=== PATIENT | female | born 1945 | race Caucasian/White ===

== ENCOUNTER 2016-10-12 10:00 | Outpatient (CLI) | payer MEDICARE, OTHER | END 2016-10-12 10:01 | disposition home or self-care (01) | DX: Z12.31 Encounter for screening mammogram for malignant neoplasm of breast (principal); N64.89 Other specified disorders of breast; Z80.3 Family history of malignant neoplasm of breast ==

== ENCOUNTER 2016-10-28 14:20 | Outpatient (CLI) | payer MEDICARE, OTHER | END 2016-10-28 14:21 | disposition home or self-care (01) | DX: R92.8 Other abnormal and inconclusive findings on diagnostic imaging of breast (principal) | CPT/HCPCS: 76642; G0206 ==

== ENCOUNTER 2017-07-16 10:06 | Emergency (ER) | payer MEDICARE, OTHER ==
[2017-07-16] MEDS ORDERED: MECLIZINE 12.5 MG TABLET PO STA ×2 (10:24→12:45)
[2017-07-16] MEDS ORDERED: ONDANSETRON 4 MG/2 ML VIAL IVP STA ×2 (11:33→12:45)
[2017-07-16] MEDS ORDERED: ONDANSETRON 4 MG/2 ML VIAL ONE (11:41)
[2017-07-16 11:55] LABS: BASOPHILS # (AUTO) 0.1 10^3/uL (0.0-0.1); BASOPHILS % (AUTO) 0.5 %; EOSINOPHILS # (AUTO) 0.2 10^3/uL (0.0-0.7); EOSINOPHILS % (AUTO) 1.7 %; HGB - HEMOGLOBIN 14.4 g/dL (12.0-16.0); LYMPHOCYTES # (AUTO) 1.6 10^3/uL (1.5-3.5); LYMPHOCYTES % (AUTO) 17.2 %; MEAN CORPUSCULAR HEMOGLOBIN 31.1 pg (27.0-31.0); MEAN CORPUSCULAR HGB CONC 34.1 g/dL (32.0-36.0); MEAN CORPUSCULAR VOLUME 91.1 fL (81.0-99.0); MEAN PLATELET VOLUME 7.5 fL (7.9-10.8); MONOCYTES # (AUTO) 0.5 10^3/uL (0.0-1.0); MONOCYTES % (AUTO) 5.2 %; NEUTROPHILS % (AUTO) 75.4 %; PLT - PLATELET COUNT 237 10^3/uL (130-450); RED BLOOD COUNT 4.62 10^6/uL (4.20-5.40); RED CELL DISTRIBUTION WIDTH 13.9 % (12.0-15.0); WHITE BLOOD COUNT 9.3 x10^3/uL (4.8-10.8)
[2017-07-16 12:09] LABS: ALBUMIN 3.9 g/dL (3.2-5.5); ALBUMIN/GLOBULIN RATIO 1.3 (1.0-2.2); BILIRUBIN,TOTAL 0.8 mg/dL (0.2-1.0); CALCIUM 8.6 mg/dL (8.5-10.3); CREATININE 0.8 mg/dL (0.4-1.0); TOTAL PROTEIN 6.8 g/dL (6.7-8.2)
[2017-07-16] MEDS ORDERED: SODIUM CHLORIDE 0.9% 1,000 ML IV ONE (12:45)
--- NOTE | 2017-07-16 12:48 | ED Physician Documentation ---
History of Present Illness - Stated complaint Stated Complaint: VOMITING/DIZZY - Chief complaint Chief Complaint: Neuro - History obtained from History obtained from: Patient, Family - History of Present Illness Timing: Enter time (0700), Today - Additonal information Additional information: 72-year-old female was well until she rolled over in bed this morning and developed acute dizziness associated with some nausea and vomiting as well. She has had this once previously with acute labyrinthitis about 15 years ago. She has not had recent illness. She was well yesterday when she went to bed. She has not had any unilateral weakness or numbness. She has had increase in her symptoms with movement of her head and with sitting up. She has had some vomiting as many as 8 times today. She has not had anything to eat or drink since this morning. Review of Systems Constitutional: denies: Fever, Chills, Myalgias, Fatigue Eyes: denies: Decreased vision Ears: denies: Ear pain Nose: denies: Rhinorrhea / runny nose, Congestion Throat: denies: Sore throat Cardiac: denies: Chest pain / pressure, Palpitations Respiratory: reports: Cough. denies: Dyspnea GI: reports: Nausea, Vomiting. denies: Abdominal Pain, Constipation, Diarrhea : denies: Dysuria, Frequency Skin: denies: Rash Musculoskeletal: denies: Neck pain, Back pain, Extremity pain Neurologic: denies: Generalized weakness, Focal weakness, Numbness, Confused, Altered mental status, Headache, Head injury, LOC PD PAST MEDICAL HISTORY - Past Medical History Cardiovascular: Atrial fibrillation Musculoskeletal: Osteoarthritis - Past Surgical History Past Surgical History: Yes /RAG BALER: Dilation and currettage HEENT: Tonsil/Adenoidectomy - Present Medications Home Medications: Ambulatory Orders Medication Instructions Recorded Confirmed Aspirin [Aspir 81] 81 mg PO DAILY 03/18/14 03/18/14 Metoprolol Tartrate 100 mg PO DAILY 03/18/14 03/18/14 Meclizine HCl 25 mg PO Q6HR PRN #20 tab.chew 07/16/17 Ondansetron Odt [Zofran] 4 mg TL Q6H PRN #10 tablet 07/16/17 - Allergies Allergies/Adverse Reactions: Allergies Allergy/AdvReac Type Severity Reaction Status Date / Time codeine AdvReac Nausea Verified 07/16/17 10:20 - Social History Does the pt smoke?: No Smoking Status: Never smoker Does the pt drink ETOH?: Yes Does the pt have substance abuse?: No - Immunizations Immunizations are current?: Yes PD ED PE NORMAL - Vitals Vital signs reviewed: Yes (Normal) - General General: Alert and oriented X 3, No acute distress, Well developed/nourished - HEENT HEENT: Atraumatic, PERRL, EOMI, Ears normal, Other (Dry mucous membranes. There are 3 beats of nystagmus laterally more pronounced to the left than the right.) - Neck Neck: Supple, no meningeal sign, No bony TTP - Cardiac Cardiac: RRR, No murmur - Respiratory Respiratory: No respiratory distress, Clear bilaterally - Abdomen Abdomen: Soft, Non tender - Back Back: No CVA TTP, No spinal TTP - Derm Derm: Normal color, Warm and dry, No rash - Extremities Extremities: No deformity, No edema - Neuro Neuro: No motor deficit, No sensory deficit Eye Opening: Spontaneous Motor: Obeys Commands Verbal: Oriented GCS Score: 15 - Psych Psych: Normal mood, Normal affect Results - Vitals Vitals: Vital Signs - 24 hr 07/16/17 07/16/17 07/16/17 10:17 12:07 13:37 Temperature 36 C L 36.7 C Heart Rate 53 L 50 L 50 L Respiratory 20 16 16 Rate Blood Pressure 130/65 115/66 123/77 O2 Saturation 96 94 97 07/16/17 14:52 Temperature 36.5 C Heart Rate 55 L Respiratory 18 Rate Blood Pressure 129/70 O2 Saturation 100 Oxygen O2 Source Room air - Labs Labs: Laboratory Tests 07/16/17 07/16/17 07/16/17 11:45 11:45 11:45 WBC 9.3 RBC 4.62 Hgb 14.4 Hct 42.1 MCV 91.1 MCH 31.1 H MCHC 34.1 RDW 13.9 Plt Count 237 MPV 7.5 L Neut # 7.0 H Lymph # 1.6 [place] # 0.5 Eos # 0.2 Baso # 0.1 Absolute Nucleated RBC 0.00 Nucleated RBC % 0.0 Sodium 136 Potassium 4.3 Chloride 102 Carbon Dioxide 24 Anion Gap 10.0 BUN 14 Creatinine 0.8 Estimated GFR (MDRD) 70 L Glucose 142 H Calcium 8.6 Total Bilirubin 0.8 AST 19 ALT 12 Alkaline Phosphatase 92 Troponin I < 0.04 Total Protein 6.8 Albumin 3.9 Globulin 2.9 Albumin/Globulin Ratio 1.3 Lipase 22 Urine Color Urine Clarity Urine pH Ur Specific [place] Urine Protein Urine Glucose (UA) Urine Ketones Urine Occult Blood Urine Nitrite Urine Bilirubin Urine Urobilinogen Ur Leukocyte Esterase Ur Microscopic Review Urine Culture Comments 07/16/17 14:35 WBC RBC Hgb Hct MCV MCH MCHC RDW Plt Count MPV Neut # Lymph # [place] # Eos # Baso # Absolute Nucleated RBC Nucleated RBC % Sodium Potassium Chloride Carbon Dioxide Anion Gap BUN Creatinine Estimated GFR (MDRD) Glucose Calcium Total Bilirubin AST ALT Alkaline Phosphatase Troponin I Total Protein Albumin Globulin Albumin/Globulin Ratio Lipase Urine Color YELLOW Urine Clarity CLEAR Urine pH 7.0 Ur Specific [place] 1.020 Urine Protein NEGATIVE Urine Glucose (UA) NEGATIVE Urine Ketones NEGATIVE Urine Occult Blood NEGATIVE Urine Nitrite NEGATIVE Urine Bilirubin NEGATIVE Urine Urobilinogen 0.2 (NORMAL) Ur Leukocyte Esterase NEGATIVE Ur Microscopic Review NOT INDICATED Urine Culture Comments NOT INDICATED PD MEDICAL DECISION MAKING - ED course Complexity details: reviewed results, re-evaluated patient, considered differential, d/w patient, d/w family ED course: 72-year-old female treated in the emergency department with oral meclizine followed by intravenous Zofran and saline. Appears to have acute labyrinthitis and is in the emergency department with 2 other patients who also have acute labyrinthitis. Departure - Departure Disposition: 01 Home, Self Care Clinical Impression: Labyrinthitis Qualifiers: Laterality: bilateral Qualified Code(s): H83.03 - Labyrinthitis, bilateral Condition: Stable Instructions: ED Labyrinthitis Follow-Up: Verito Damon NP [Primary Care Provider] - Prescriptions: Meclizine HCl 25 mg PO Q6HR PRN #20 tab.chew PRN Reason: Dizziness Ondansetron Odt [Zofran] 4 mg TL Q6H PRN #10 tablet PRN Reason: Nausea / Vomiting Discharge Date/Time: 07/16/17 15:07
[2017-07-16 14:43] LABS: BILIRUBIN,URINE NEGATIVE (NEGATIVE); CLARITY,URINE CLEAR (CLEAR); GLUCOSE, URINE (UA) NEGATIVE (NEGATIVE); KETONES,URINE (UA) NEGATIVE (NEGATIVE); LEUKOCYTE ESTERASE, URINE NEGATIVE (NEGATIVE); NITRITE,URINE NEGATIVE (NEGATIVE); OCCULT BLOOD,URINE NEGATIVE (NEGATIVE); PROTEIN,URINE NEGATIVE (NEGATIVE); UROBILINOGEN,URINE 0.2 (NORMAL) E.U./dL (NORMAL)
[2017-07-16 14:55] VITALS: BP 129/70
== END 2017-07-16 15:07 | disposition home or self-care (01) ==
LOC: ED 10:06
DX: H83.03 Labyrinthitis, bilateral (principal); Z79.82 Long term (current) use of aspirin
CPT/HCPCS: 36415; 80053; 81003; 83690; 84484; 85025; 96374; 96376; 99283; 99284; A9270; 81001; 87086

== ENCOUNTER 2018-02-24 08:22 | Outpatient (CLI) | payer MEDICARE, OTHER | END 2018-02-24 08:23 | disposition critical access hospital (66) | LOC: EMS 08:22 | PROVIDERS: ATTEND Surgery | DX: R42 Dizziness and giddiness (principal); R11.2 Nausea with vomiting, unspecified | CPT/HCPCS: A0425; A0427 ==

== ENCOUNTER 2018-02-24 08:34 | Emergency (ER) | payer MEDICARE, OTHER ==
[2018-02-24] MEDS ORDERED: MECLIZINE 12.5 MG TABLET PO STA (09:58)
[2018-02-24] MEDS ORDERED: ONDANSETRON 4 MG/2 ML VIAL IVP STA (09:59)
[2018-02-24] MEDS ORDERED: SODIUM CHLORIDE 0.9% 1,000 ML IV ONE (09:59)
--- NOTE | 2018-02-24 10:00 | ED Physician Documentation ---
History of Present Illness - Stated complaint Stated Complaint: VERTIGO, N/V - Chief complaint Chief Complaint: Neuro - History obtained from History obtained from: Patient, Family - History of Present Illness Timing: Last night - Additonal information Additional information: 72-year-old female has developed acute vertigo again. She last had an episode of this in July of this year and prior to that about 15 years ago. She recalls that in the July episode she was treated here in the emergency department with a dose of meclizine and some Zofran and she improved dramatically and did not require further medication for that illness. She denies any recent hearing loss she has had slight cough which has been attributed to allergy. She has not had any sputum production she is not short of breath she did have some vomiting today associated with this dizziness. Review of Systems Constitutional: denies: Fever Eyes: denies: Decreased vision Ears: denies: Ear pain Nose: denies: Rhinorrhea / runny nose, Congestion Throat: denies: Sore throat Cardiac: denies: Chest pain / pressure, Palpitations Respiratory: reports: Cough. denies: Dyspnea GI: reports: Nausea, Vomiting. denies: Abdominal Pain, Constipation, Diarrhea : denies: Dysuria, Frequency Skin: denies: Rash Musculoskeletal: denies: Neck pain, Back pain, Extremity pain Neurologic: reports: Other (acute room spinning). 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: Dilation and currettage HEENT: Tonsil/Adenoidectomy - Present Medications Home Medications: Ambulatory Orders Medication Instructions Recorded Confirmed Aspirin [Aspir 81] 81 mg PO DAILY 03/18/14 03/18/14 Metoprolol Tartrate 100 mg PO DAILY 03/18/14 03/18/14 Meclizine HCl 25 mg PO Q6HR PRN #20 tab.chew 07/16/17 Ondansetron Odt [Zofran] 4 mg TL Q6H PRN #10 tablet 07/16/17 Atorvastatin [Lipitor] 02/24/18 Meclizine HCl 25 mg PO Q6HR PRN #20 tab.chew 02/24/18 Ondansetron Odt [Zofran] 4 mg TL Q6H PRN #10 tablet 02/24/18 raNITIdine [Zantac] 150 mg PO DAILY 02/24/18 02/24/18 - Allergies Allergies/Adverse Reactions: Allergies Allergy/AdvReac Type Severity Reaction Status Date / Time codeine AdvReac Nausea Verified 07/16/17 10:20 - Social History Does the pt smoke?: No Smoking Status: Never smoker Does the pt drink ETOH?: Yes Does the pt have substance abuse?: No - Immunizations Immunizations are current?: Yes PD ED PE NORMAL - Vitals Vital signs reviewed: Yes (hypertensive ) - General General: Alert and oriented X 3, No acute distress, Well developed/nourished - HEENT HEENT: Atraumatic, PERRL, EOMI, Ears normal, Moist mucous membranes, Pharynx benign, Dentition benign, Other (There are 3 beats of nystagmus bilaterally ) - Neck Neck: Supple, no meningeal sign, No bony TTP - Cardiac Cardiac: RRR, No murmur - Respiratory Respiratory: No respiratory distress, Clear bilaterally - Abdomen Abdomen: Soft, Non tender - Back Back: No CVA TTP, No spinal TTP - Derm Derm: Normal color, Warm and dry, No rash - Extremities Extremities: No deformity, No edema - Neuro Neuro: Alert and oriented X 3, screening tech 2-12 intact, No motor deficit, No sensory deficit, Normal speech Eye Opening: Spontaneous Motor: Obeys Commands Verbal: Oriented GCS Score: 15 - Psych Psych: Normal mood, Normal affect Results - Vitals Vitals: Vital Signs - 24 hr 02/24/18 08:38 Temperature 35.6 C L Heart Rate 57 L Respiratory 16 Rate Blood Pressure 157/87 H O2 Saturation 95 Oxygen O2 Source Room air PD MEDICAL DECISION MAKING - ED course Complexity details: reviewed old records, reviewed results, re-evaluated patient , considered differential, d/w patient, d/w family ED course: 72-year-old female with an another episode of vertigo appeared to have excellent response to treatment previously and here in the emergency department she does appear to have some nystagmus bilaterally and she has had some vomiting. She is treated with meclizine and Zofran. - Sepsis Event Vital Signs: Vital Signs - 24 hr 02/24/18 08:38 Temperature 35.6 C L Heart Rate 57 L Respiratory 16 Rate Blood Pressure 157/87 H O2 Saturation 95 Oxygen O2 Source Room air Departure - Departure Disposition: Home, Self Care Clinical Impression: Labyrinthitis Qualifiers: Laterality: bilateral Qualified Code(s): H83.03 - Labyrinthitis, bilateral Condition: Stable Instructions: ED Labyrinthitis Follow-Up: Your, doctor [Other] Prescriptions: Meclizine HCl 25 mg PO Q6HR PRN #20 tab.chew PRN Reason: Dizziness Ondansetron Odt [Zofran] 4 mg TL Q6H PRN #10 tablet PRN Reason: Nausea / Vomiting
[2018-02-24 11:55] VITALS: BP 143/62
== END 2018-02-24 12:11 | disposition home or self-care (01) ==
LOC: EDUNIT# → ED 08:34
DX: H83.03 Labyrinthitis, bilateral (principal); R11.2 Nausea with vomiting, unspecified; Z79.82 Long term (current) use of aspirin
CPT/HCPCS: 96361; 96374; 99283; A9270

== ENCOUNTER 2019-08-31 13:57 | Outpatient (CLI) | payer MEDICARE, OTHER ==
--- NOTE | 2019-09-10 13:59 | Mammography Report ---
Reason: ROUTINE MAMMO Procedure Date: 08/31/2019 Accession Number: [id number] / [id number] Procedure: [facility] - Screening Mammo w/[facility]elson CPT Code: Final Report FULL RESULT: EXAM: Screening Mammo w/[facility]elson DATE: 08/31/2019 2:33 PM CLINICAL HISTORY: Screening encounter. History of early menses. History of benign right breast biopsy, excisional type. TECHNIQUE: (B) - Bilateral CC and MLO views were obtained. COMPARISON: 10/28/2016 through 08/18/2010. PARENCHYMAL PATTERN: (A) - The breast(s) demonstrate(s) scattered fibroglandular densities. FINDINGS: There are no suspicious masses, calcifications, or areas of distortion. IMPRESSION: Negative examination. BI-RADS category 1. RECOMMENDATION: (ANNUAL) - Recommend routine annual screening mammography. BI-RADS CATEGORY: (1) - Negative. STANDARD QUALIFYING STATEMENTS: 1. This examination was not reviewed with the aid of Computer-Aided Detection (CAD). 2. A negative or benign imaging report should not preclude biopsy if clinically suspicious findings are present. 3. Dense breasts may obscure an underlying neoplasm. 4. This examination was reviewed with the aid of 3D breast imaging (tomosynthesis).
== END 2019-08-31 13:58 | disposition home or self-care (01) ==
LOC: DI 13:57
DX: Z12.31 Encounter for screening mammogram for malignant neoplasm of breast (principal)
CPT/HCPCS: 77063; 77067

== ENCOUNTER 2021-11-09 12:58 | Outpatient (CLI) | payer MEDICARE, OTHER ==
--- NOTE | 2021-11-13 16:21 | Mammography Report ---
BILATERAL DIGITAL SCREENING MAMMOGRAM 3D/2D: 11/09/2021 CLINICAL: Routine screening. Comparison is made to exams dated: 08/31/2019 mammogram, 10/28/2016 ultrasound, 10/28/2016 mammogram, mammogram, 08/28/2015 mammogram, and 07/25/2013 mammogram - [facility]. The tissue of both breasts is predominantly fatty. No significant masses, calcifications, or other findings are seen in either breast. There has been no significant interval change. IMPRESSION: NEGATIVE There is no mammographic evidence of malignancy. A 1 year screening mammogram is recommended. This exam was interpreted at Station ID: [id number]. NOTE: For mammograms, a report in lay terms will be sent to the patient. Approximately 15% of breast malignancies will not be visualized mammographically. In the management of a palpable breast mass, a negative mammogram must not discourage biopsy of a clinically suspicious lesion. Electronically Signed By: Devaughn Palacios M.D., jr/fredo:11/09/2021 14:41:18 ACR BI-RADS Category 1: Negative 3341F PARENCHYMAL PATTERN: (F) - The breast(s) demonstrate(s) diffuse fatty replacement. BI-RADS CATEGORY: (1) - 1 RECOMMENDATION: (ANNUAL) - Recommend routine annual screening mammography. [id number] 1 year screening LATERALITY: (B)
== END 2021-11-09 12:59 | disposition home or self-care (01) ==
LOC: DI.N 12:58
DX: Z12.31 Encounter for screening mammogram for malignant neoplasm of breast (principal)

== ENCOUNTER 2023-04-14 12:41 | Outpatient (CLI) | payer MEDICARE ==
[2023-04-14 14:11] LABS: BILIRUBIN,URINE NEGATIVE (NEGATIVE); GLUCOSE, URINE (UA) NEGATIVE (NEGATIVE); KETONES,URINE (UA) TRACE mg/dL (NEGATIVE); LEUKOCYTE ESTERASE, URINE SMALL (NEGATIVE); NITRITE,URINE NEGATIVE (NEGATIVE); OCCULT BLOOD,URINE NEGATIVE (NEGATIVE); PROTEIN,URINE TRACE mg/dL (NEGATIVE); UROBILINOGEN,URINE 0.2 (NORMAL) E.U./dL (NORMAL)
[2023-04-14 14:38] LABS: BACTERIA,URINE Moderate /HPF (None Seen); CLARITY,URINE CLEAR (CLEAR); RBC,URINE 0-5 /HPF (0-5); SQUAMOUS EPITHELIAL CELL,UR MANY Squamous (<= Few)
[2023-04-14 14:39] LABS: CASTS, URINE 3-5 Hyaline Casts /LPF; MUCUS,URINE Moderate Strands
== END 2023-04-14 12:42 | disposition home or self-care (01) ==
LOC: LAB 12:41
PROVIDERS: ATTEND Orthopaedic Surgery
DX: N39.0 Urinary tract infection, site not specified (principal)
CPT/HCPCS: 81001; 87086

== ENCOUNTER 2023-06-11 18:23 | Outpatient (CLI) | payer MEDICARE | END 2023-06-11 18:24 | disposition critical access hospital (66) | LOC: EMS 18:23 | DX: R06.02 Shortness of breath (principal); R07.9 Chest pain, unspecified | CPT/HCPCS: A0425; A0429 ==

== ENCOUNTER 2023-06-11 18:34 | Emergency (ER) | payer MEDICARE ==
[2023-06-11 19:46] LABS: BASOPHILS # (AUTO) 0.1 10^3/uL (0.0-0.1); BASOPHILS % (AUTO) 0.5 %; EOSINOPHILS # (AUTO) 0.2 10^3/uL (0.0-0.7); EOSINOPHILS % (AUTO) 2.3 %; HCT - HEMATOCRIT 41.3 % (37.0-47.0); HGB - HEMOGLOBIN 13.6 g/dL (12.0-16.0); LYMPHOCYTES # (AUTO) 2.6 10^3/uL (1.5-3.5); LYMPHOCYTES % (AUTO) 25.7 %; MEAN CORPUSCULAR HEMOGLOBIN 29.8 pg (27.0-31.0); MEAN CORPUSCULAR HGB CONC 32.9 g/dL (32.0-36.0); MEAN CORPUSCULAR VOLUME 90.6 fL (81.0-99.0); MEAN PLATELET VOLUME 8.8 fL (7.9-10.8); MONOCYTES # (AUTO) 0.8 10^3/uL (0.0-1.0); MONOCYTES % (AUTO) 7.6 %; NEUTROPHILS # (AUTO) 6.4 10^3/uL (1.5-6.6); NEUTROPHILS % (AUTO) 63.6 %; PLT - PLATELET COUNT 304 10^3/uL (130-450); RED BLOOD COUNT 4.56 10^6/uL (4.20-5.40); WHITE BLOOD COUNT 10.1 x10^3/uL (4.8-10.8)
[2023-06-11 19:57] LABS: ALBUMIN 4.3 g/dL (3.2-5.5); ALBUMIN/GLOBULIN RATIO 1.6 (1.0-2.2); BILIRUBIN,TOTAL 0.7 mg/dL (0.2-1.0); CALCIUM 9.6 mg/dL (8.5-10.3); CREATININE 0.7 mg/dL (0.6-1.3); POTASSIUM 3.7 mmol/L (3.5-4.5)
[2023-06-11 20:02] LABS: TROPONIN I HIGH SENSITIVITY 4.3 ng/L (2.3-14.8)
--- NOTE | 2023-06-11 20:13 | XRAY Report ---
PROCEDURE: Chest 1 View X-Ray INDICATIONS: SOA TECHNIQUE: One view of the chest was acquired. COMPARISON: None. FINDINGS: Surgical changes and devices: Electronic device overlies the left upper chest.. Lungs and pleura: No pleural effusions or pneumothorax. Lungs are clear. Mediastinum: Mediastinal contours appear normal. Heart size is normal. Bones and chest wall: No suspicious bony lesions. Overlying soft tissues appear unremarkable. IMPRESSION: No acute cardiopulmonary process. Reviewed by: Yayo Vincent MD on 06/11/2023 8:12 PM PST Approved by: Yayo Vincent MD on 06/11/2023 8:12 PM [facility] Station ID: [id number]
[2023-06-11] MEDS ORDERED: SODIUM CHLORIDE 0.9% 500 ML IV STA (20:19)
--- NOTE | 2023-06-11 20:54 | ED Physician Documentation ---
PD HPI CHEST PAIN - Stated complaint Stated Complaint: SOA - Chief complaint Chief Complaint: Cardiac - History obtained from History obtained from: Patient - Additional information Additional information: Patient is an 78-year-old female with a history of a recent right knee replacement, A-fib on Eliquis presenting for evaluation of feeling short of breath around 1730 this evening while she was sitting down and addressing some issues regarding an event that she has tomorrow. She states that she felt short of breath for approximately 20 to 30 minutes and there was a 2 to 3-second episode of left-sided chest pain that resolved. She reports having had a right knee replacement on May 02, 2023. She has been less mobile. She does have a long history of A-fib and after surgery she was seen by her tie fastener who recommended she start Eliquis which she has been taking for the last few weeks. Today she was doing more activity with being up on her feet more including making cookies this morning. This afternoon she was running several errands and then when she got home she realized that the cookies she had made this morning for an event were stuck to a wax paper she excellently use versus a parchment paper and was trying to scrape those off. 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 Her symptoms have completely resolved with the time EMS arrived and while she is here. She denies having other recent episodes of similar symptoms. She is scheduled for an echocardiogram as well as a stress test this . She currently has a Zio patch on from her tie fastener to evaluate her A-fib. She denies recent illness with fever cough or congestion.She has been eating and drinking fine. Denies abdominal symptoms. Review of Systems Constitutional: denies: Fever Cardiac: reports: Chest pain / pressure Respiratory: reports: Dyspnea. 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 PLAN ADJUSTER: None : None HEENT: None Psych: None Musculoskeletal: Osteoarthritis Derm: Rosacea - Past Surgical History Past Surgical History: Yes Ortho: Knee replacement /FLOOR PLAN ADJUSTER: Dilation and currettage HEENT: Tonsil/Adenoidectomy - Present Medications Home Medications: Ambulatory Orders Medication Instructions Recorded Confirmed Aspirin [Aspir 81] 81 mg PO DAILY 03/18/14 03/18/14 Metoprolol Tartrate 100 mg PO DAILY 03/18/14 03/18/14 Meclizine HCl 25 mg PO Q6HR PRN #20 tab.chew 07/16/17 Ondansetron Odt [Zofran] 4 mg TL Q6H PRN #10 tablet 07/16/17 Atorvastatin [Lipitor] 02/24/18 Meclizine HCl 25 mg PO Q6HR PRN #20 tab.chew 02/24/18 Ondansetron Odt [Zofran] 4 mg TL Q6H PRN #10 tablet 02/24/18 raNITIdine [Zantac] 150 mg PO DAILY 02/24/18 02/24/18 - Allergies Allergies/Adverse Reactions: Allergies Allergy/AdvReac Type Severity Reaction Status Date / Time codeine AdvReac Nausea Verified 07/16/17 10:20 - Social History Does the pt smoke?: No Smoking Status: Never smoker Does the pt drink ETOH?: Yes Does the pt have substance abuse?: No - Immunizations Immunizations are current?: Yes - POLST Patient has POLST: No PD ED PE NORMAL - General General: Alert and oriented X 3, No acute distress, Well developed/nourished - HEENT HEENT: Atraumatic - Neck Neck: Supple, no meningeal sign - Cardiac Cardiac: RRR, Strong equal pulses - Respiratory Respiratory: No respiratory distress, Clear bilaterally - Abdomen Abdomen: Normal bowel sounds, Soft, Non tender, Non distended - Derm Derm: Warm and dry - Extremities Extremities: No calf tenderness / cord - Neuro Neuro: Normal speech Results - Vitals Vitals: Vital Signs - 24 hr 06/11/23 06/11/23 06/11/23 18:46 19:19 19:30 Temperature 36.5 C Heart Rate 70 69 69 Respiratory 22 19 19 Rate Blood Pressure 148/124 H 153/70 H 153/70 H O2 Saturation 100 100 100 06/11/23 06/11/23 06/11/23 20:00 21:22 22:06 Temperature Heart Rate 73 70 76 Respiratory 13 17 13 Rate Blood Pressure 146/103 H 153/70 H 160/72 H O2 Saturation 97 99 98 Oxygen O2 Source Room air - EKG (time done) 1853 EKG releavant findings:: EKG personally interpreted by author of this note. Relevant findings are: Rate 67, normal sinus rhythm, no STEMI, no ST depressions, QTc 451 - Labs Labs: Laboratory Tests 06/11/23 06/11/23 06/11/23 19:08 19:08 21:01 WBC 10.1 RBC 4.56 Hgb 13.6 Hct 41.3 MCV 90.6 MCH 29.8 MCHC 32.9 RDW 14.0 Plt Count 304 MPV 8.8 Neut # (Auto) 6.4 Lymph # (Auto) 2.6 [place] # (Auto) 0.8 Eos # (Auto) 0.2 Baso # (Auto) 0.1 Absolute Nucleated RBC 0.00 Nucleated RBC % 0.0 Sodium 132 L Potassium 3.7 Chloride 98 L Carbon Dioxide 26 Anion Gap 8.0 BUN 12 Creatinine 0.7 Estimated GFR (MDRD) 81 L Glucose 106 H Calcium 9.6 Total Bilirubin 0.7 AST 13 ALT 18 Alkaline Phosphatase 166 H Troponin I High Sens 4.3 4.1 Total Protein 7.0 Albumin 4.3 Globulin 2.7 Albumin/Globulin Ratio 1.6 Lipase 19 PD Medical Decision Making - ED course Complexity details: reviewed results, re-evaluated patient, d/w patient, d/w family ED course: Patient is an 78-year-old female presenting for evaluation of a 20 to 30-minute period of feeling short of air while she was navigating a stressful situation as well as a 2 to 3-second episode of chest pain. Her EKG demonstrates a normal sinus rhythm. She has been symptom-free here. CBC, chemistry, troponin were obtained and reviewed. Mild hyponatremia of 132. Troponins have remained negative x2. Chest x-ray which I reviewed is negative for effusion or consolidation. No leg swelling or pain. Patient does have a history of A-fib a nd is already anticoagulated on Eliquis and PE would be unlikely while anticoagulated. We discussed possibility of CT scan to evaluate for pulmonary embolism but Symptoms have completely resolved, and and patient feels comfortable with discharge and close follow-up. She has a stress test and echocardiogram already scheduled for this week. She is aware she needs to follow-up with her tie fastener. She is counseled on concerning symptoms to return for. Departure - Departure Disposition: 01 Home, Self Care Clinical Impression: SOB (shortness of breath), Chest pain, Hyponatremia Condition: Stable Instructions: ED Chest Pain NonCardiac Comments: You were evaluated for an episode of brief chest pain as well as feeling short of breath. You have been symptom-free here which is a good sign. Your EKG shows that you are in a regular rhythm. We checked a CBC, chemistry panel and 2 sets of troponins. The only irregular lab value was a slightly low sodium of 132. Your chest x-ray was also clear. I would recommend close follow-up with your tie fastener and primary care provider. Return to the ER if your symptoms recur. Forms: PCP List Discharge Date/Time: 06/11/23 22:06
[2023-06-11 22:15] VITALS: BP 160/72; O2SAT 98
== END 2023-06-11 22:06 | disposition home or self-care (01) ==
LOC: EDUNIT# → ED 18:34
DX: R06.02 Shortness of breath (principal); R07.9 Chest pain, unspecified; E87.1 Hypo-osmolality and hyponatremia; I48.91 Unspecified atrial fibrillation; Z79.01 Long term (current) use of anticoagulants
CPT/HCPCS: 36415; 80053; 83690; 84484; 85025; 93005; 96360; 99283

== ENCOUNTER 2023-10-09 00:38 | Emergency (ER) | payer MEDICARE ==
--- NOTE | 2023-10-09 00:42 | ED Physician Documentation ---
History of Present Illness - Stated complaint Stated Complaint: HEART PALP - History obtained from History obtained from: Patient - Additonal information Additional information: HPI from patient. Patient c/o sudden onset irregular, though not rapid, palpitations, approximately 11 PM tonight while at home getting ready for bed. Denies chest pain, dyspnea. [place] similar to her previous atrial fibrillation but resolved by the time of this H+P without specific intervention. Her medication list includes eliquis (for atrial fibrillation). 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 : None HEENT: None Psych: None Musculoskeletal: Osteoarthritis Derm: Rosacea - Past Surgical History Past Surgical History: Yes Ortho: Knee replacement /SPRAYER MACHINE: Dilation and currettage HEENT: Tonsil/Adenoidectomy - Present Medications Home Medications: Ambulatory Orders Medication Instructions Recorded Confirmed Metoprolol Tartrate 150 mg PO DAILY 03/18/14 10/09/23 Atorvastatin [Lipitor] 10 mg PO DAILY 02/24/18 10/09/23 Meclizine HCl 25 mg PO Q6HR PRN #20 tab.chew 02/24/18 10/09/23 Apixaban [Eliquis] 5 mg PO BID 10/09/23 10/09/23 Cholecalciferol (Vitamin D3) 2,000 mcg PO DAILY 10/09/23 10/09/23 [Vitamin D3] Omeprazole Magnesium [Prilosec] 10 mg PO DAILY 10/09/23 10/09/23 - Allergies Allergies/Adverse Reactions: Allergies Allergy/AdvReac Type Severity Reaction Status Date / Time codeine AdvReac Nausea Verified 10/09/23 01:00 - Social History Does the pt smoke?: No Smoking Status: Never smoker Does the pt drink ETOH?: Yes Does the pt have substance abuse?: No - Immunizations Immunizations are current?: Yes - POLST Patient has POLST: No Results - Vitals Vitals: Oxygen O2 Source Room air - EKG (time done) No standard instances EKG releavant findings:: EKG personally interpreted by author of this note. Relevant findings are: Rate: Rate (enter#) (79) Rhythm: NSR [place]: Normal Intervals: Normal [place] QRS: Normal Ischemia: Normal ST segments - Labs Labs: Laboratory Tests 10/09/23 10/09/23 00:53 00:53 WBC 9.4 RBC 4.72 Hgb 13.7 Hct 42.4 MCV 89.8 MCH 29.0 MCHC 32.3 RDW 14.3 Plt Count 276 MPV 9.1 Neut # (Auto) 6.7 H Lymph # (Auto) 1.7 [place] # (Auto) 0.7 Eos # (Auto) 0.3 Baso # (Auto) 0.0 Absolute Nucleated RBC 0.00 Nucleated RBC % 0.0 Sodium 128 L Potassium 3.7 Chloride 93 L Carbon Dioxide 26 Anion Gap 9.0 BUN 16 Creatinine 0.8 Estimated GFR (MDRD) 69 L Glucose 119 H Calcium 8.9 Magnesium 1.8 PD Medical Decision Making - ED course Complexity details: reviewed results, re-evaluated patient, considered differential, d/w patient ED course: No concerning nor diagnostic findings on tonight's tests including EKG and basic blood tests. Mild hyponatremia (129) is noncontributory. Normal magnesium, potassium, and calcium levels. CXR and hs-cTn not done, as there are no c/o chest pain, dyspnea, nor other c/o that would indicate these particular tests. 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 Results d/w patient, return precautions reviewed, advised to follow up with PCP next available appointment. Differential includes PVCs, PACs, self-limited run of atrial fibrillation. Departure - Departure Disposition: 01 Home, Self Care Clinical Impression: Palpitations, Hyponatremia Condition: Good Instructions: ED Hyponatremia, ED Palpitations Comments: There were no concerning or diagnostic findings on tonight's tests. As we discussed, your sodium level is low. However, it is not low enough to be of emergent concern nor would a low sodium cause the sensation of palpitations. I would consider this an incidental finding at this time. You should follow-up with your primary care provider for reevaluation of your symptoms should they recur, but even if they do not, for reevaluation of your low sodium level. Forms: PCP List Discharge Date/Time: 10/09/23 02:37
[2023-10-09 01:47] LABS: BASOPHILS % (AUTO) 0.4 %; EOSINOPHILS # (AUTO) 0.3 10^3/uL (0.0-0.7); EOSINOPHILS % (AUTO) 2.9 %; HCT - HEMATOCRIT 42.4 % (37.0-47.0); HGB - HEMOGLOBIN 13.7 g/dL (12.0-16.0); LYMPHOCYTES # (AUTO) 1.7 10^3/uL (1.5-3.5); LYMPHOCYTES % (AUTO) 17.5 %; MEAN CORPUSCULAR HGB CONC 32.3 g/dL (32.0-36.0); MEAN CORPUSCULAR VOLUME 89.8 fL (81.0-99.0); MEAN PLATELET VOLUME 9.1 fL (7.9-10.8); MONOCYTES # (AUTO) 0.7 10^3/uL (0.0-1.0); MONOCYTES % (AUTO) 7.5 %; NEUTROPHILS # (AUTO) 6.7 10^3/uL (1.5-6.6); NEUTROPHILS % (AUTO) 71.4 %; PLT - PLATELET COUNT 276 10^3/uL (130-450); RED BLOOD COUNT 4.72 10^6/uL (4.20-5.40); RED CELL DISTRIBUTION WIDTH 14.3 % (12.0-15.0); WHITE BLOOD COUNT 9.4 x10^3/uL (4.8-10.8)
[2023-10-09 01:56] LABS: MAGNESIUM 1.8 mg/dL (1.7-2.3)
[2023-10-09 02:02] LABS: CALCIUM 8.9 mg/dL (8.5-10.3); CREATININE 0.8 mg/dL (0.6-1.3); POTASSIUM 3.7 mmol/L (3.5-4.5)
[2023-10-09 02:06] VITALS: BP 151/66
[2023-10-10 07:47] VITALS: O2SAT 96
== END 2023-10-09 02:37 | disposition home or self-care (01) ==
LOC: ED 00:38
DX: R00.2 Palpitations (principal); E87.1 Hypo-osmolality and hyponatremia; I48.91 Unspecified atrial fibrillation; Z79.01 Long term (current) use of anticoagulants
CPT/HCPCS: 36415; 80048; 83735; 85025; 93005; 99283